=== PATIENT | male | born 1940 | race Caucasian/White ===

== ENCOUNTER → 2022-01-19 | Emergency (ER) | payer MEDICARE, OTHER ==
[~2022-01-19] VITALS: Ht 182.9 cm; Wt 70.8 kg
[~2022-01-19] MED LIST: IBUP-1955 PO
[2022-01-19 13:48] VITALS: BP 112/58
--- NOTE | 2022-01-19 13:48 | NUR ---
Patient discharged to home in stable condition. RX,Written and verbal after care instructions given. Patient verbalizes understanding of instruction.
== END | disposition home or self-care (01) ==
LOC: ER 12:03
DX: S62.617A Displaced fracture of proximal phalanx of left little finger, initial encounter for closed fracture (principal); Z86.69 Personal history of other diseases of the nervous system and sense organs; W10.9XXA Fall (on) (from) unspecified stairs and steps, initial encounter; Y93.89 Activity, other specified; Y92.89 Other specified places as the place of occurrence of the external cause; Y99.8 Other external cause status
CPT/HCPCS: 73140-TC

== ENCOUNTER 2022-01-25 13:00 | Outpatient (CLI) | payer MEDICARE, OTHER | END 2022-01-25 23:59 | LOC: WOU 13:00 | PROVIDERS: ATTEND Surgery | DX: S63.277D Dislocation of unspecified interphalangeal joint of left little finger, subsequent encounter (principal); X58.XXXD Exposure to other specified factors, subsequent encounter; M62.50 Muscle wasting and atrophy, not elsewhere classified, unspecified site; R26.2 Difficulty in walking, not elsewhere classified; G20 Parkinson's disease | CPT/HCPCS: G0463 ==

== ENCOUNTER 2022-02-20 11:14 | Emergency (ER) | payer MEDICARE, OTHER ==
[~2022-02-20] VITALS: Ht 188 cm; Wt 72.3 kg
--- NOTE | 2022-02-20 11:25 | NUR ---
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 PATIENT IS A/OX3. STATES THAT FALL HAPPENED WHEN HE TRIED TO STAND UP FROM HAIR BUT UNABLE TO RECALL HOW HE FELL OR WHAT PRECIPITATED THE FALL. DENIES DIZZINESS BUT VERBALIZES HEADACHE.
--- NOTE | 2022-02-20 11:30 | NUR ---
TO ER BED 10. VS TAKEN.
--- NOTE | 2022-02-20 11:35 | NUR ---
DR. DOUGLAS AT BEDSIDE W/ PATIENT.
--- NOTE | 2022-02-20 11:42 | NUR ---
IV LINE ESTABLISHED ON RAC #20, BLOOD DRAWN, COLLECTED, AND SENT TO LAB. LINE CONVERTED TO SALINE LOCK.
[2022-02-20 11:46] LABS: BASOPHILS % (AUTO) 0.6 % (0.0-2.0); EOSINOPHILS % (AUTO) 1.6 % (0.0-6.0); HEMATOCRIT 39 % (39-51); HEMOGLOBIN 13.1 g/dL (13.5-17.5); LYMPHOCYTES # (AUTO) 1.4 K/uL (0.8-4.8); LYMPHOCYTES % (AUTO) 26.2 % (20.0-44.0); MEAN CORPUSCULAR HGB CONC 34 g/dl (31.0-36.0); MEAN CORPUSCULAR VOLUME 93 fL (80-96); MONOCYTES # (AUTO) 0.4 K/uL (0.1-1.30); NEUTROPHILS # (AUTO) 3.6 K/uL (1.8-8.9); NEUTROPHILS % (AUTO) 64.6 % (43.0-81.0); PLATELET COUNT (AUTO) 151 K/uL (150-450); RED BLOOD CELL COUNT(AUTO) 4.16 MIL/uL (4.5-6.0); WHITE BLOOD COUNT (AUTO) 5.5 K/uL (4.3-11.0)
[2022-02-20 11:56] LABS: CALCIUM, SERUM 8.7 mg/dL (8.5-10.1); CARBON DIOXIDE 33 mmol/L (21-32); CHLORIDE 104 mmol/L (98-107); CREATININE 1.1 mg/dL (0.6-1.3); GLUCOSE 75 mg/dL (74-106); POTASSIUM 4.1 mmol/L (3.5-5.1); SODIUM SERUM 139 mmol/L (136-145); UREA NITROGEN, BLOOD 30 mg/dL (7-18)
[2022-02-20 12:01] LABS: ALANINE AMINOTRANSFERASE 8 U/L (12-78); ALBUMIN 4.1 g/dL (3.4-5.0); ALKALINE PHOSPHATASE 75 U/L (46-116); ASPARTATE AMINOTRANSFERASE 16 U/L (15-37); BILIRUBIN,DIRECT 0.2 mg/dL (0.0-0.2); BILIRUBIN,TOTAL 0.7 mg/dL (0.2-1.0); TOTAL PROTEIN, SERUM 7.4 g/dL (6.4-8.2)
--- NOTE | 2022-02-20 12:14 | NUR ---
PT TAKEN TO RADIOLOGY.
--- NOTE | 2022-02-20 12:17 | NUR ---
PT BACK FROM RADIOLOGY VIA [facility].
--- NOTE | 2022-02-20 13:12 | NUR ---
PHLEB TECH AT BEDSIDE FOR BLOOD DRAW FOR 2ND TROPONIN TEST PER MD'S ORDER.
[2022-02-20] MEDS ORDERED: ATOR20TA PO (13:30)
[2022-02-20] MEDS ORDERED: MIRT-90 PO (13:30)
[2022-02-20] MEDS ORDERED: LEVO100T9 PO (13:30)
[2022-02-20] MEDS ORDERED: CARB-134 PO (13:30)
[2022-02-20] MEDS ORDERED: MYRBETRIQ PO (13:30)
--- NOTE | 2022-02-20 13:48 | NUR ---
PER , SHE WILL DRIVE THE PATIENT BACK TO [facility] [place].
[2022-02-20 13:50] VITALS: BP 124/70
--- NOTE | 2022-02-20 13:56 | NUR ---
[facility] IV line removed, no bleeding noted. Written and verbal after care instructions given. Patient verbalizes understanding of instruction. Accompanied to the parking lot w/ staff via wheelchair and picked up patient via private car.
== END 2022-02-20 13:58 ==
LOC: ER 11:31
DX: M54.6 Pain in thoracic spine (principal); Z79.899 Other long term (current) drug therapy
CPT/HCPCS: 36415; 70450-TC; 72074-TC; 72125-TC; 80048-TC; 80076-TC; 84484-TC; 85025-TC; 85730-TC

== ENCOUNTER 2023-07-16 09:06 | Inpatient (IN) | payer MEDICARE, OTHER ==
[~2023-07-16] VITALS: Ht 182.9 cm; Wt 69.9 kg
[~2023-07-16 09:06] MED LIST changes: +ATOR20TA PO; +CARB-134 PO; +LEVO100T9 PO; +MIRT-90 PO; +MYRBETRIQ PO
[2023-07-16] MEDS ORDERED: IV NS 0.9% 1,000 ML BAG IV ONE (10:00)
[2023-07-16 10:40] LABS: BASOPHILS % (AUTO) 0.3 % (0.0-2.0); HEMATOCRIT 37 % (39-51); HEMOGLOBIN 12.5 g/dL (13.5-17.5); LYMPHOCYTES # (AUTO) 0.6 K/uL (0.8-4.8); LYMPHOCYTES % (AUTO) 8.2 % (20.0-44.0); MEAN CORPUSCULAR HEMOGLOBIN 30 PG (26.0-33.0); MEAN CORPUSCULAR HGB CONC 34 g/dl (31.0-36.0); MEAN CORPUSCULAR VOLUME 90 fL (80-96); MONOCYTES # (AUTO) 0.6 K/uL (0.1-1.30); MONOCYTES % (AUTO) 8.5 % (2.0-12.0); NEUTROPHILS # (AUTO) 5.7 K/uL (1.8-8.9); PLATELET COUNT (AUTO) 166 K/uL (150-450); RED BLOOD CELL COUNT(AUTO) 4.12 MIL/uL (4.5-6.0); RED CELL DISTRIBUTION WIDTH 16.2 % (11.5-15.0); WHITE BLOOD COUNT (AUTO) 6.9 K/uL (4.3-11.0)
[2023-07-16 10:44] LABS: APPEARANCE,URINE CLEAR (CLEAR); BILIRUBIN,URINE 1+ (NEGATIVE); BLOOD, URINE 2+ Ery/uL (NEGATIVE); COLOR,URINE DARK YELLOW (YELLOW); KETONES,URINE 1+ mg/dL (NEGATIVE); LEUKOCYTE ESTERASE ,URINE NEGATIVE (NEGATIVE); NITRITE, URINE NEGATIVE (NEGATIVE); PROTEIN,URINE 1+ mg/dl (NEGATIVE); UGLUCOSE NEGATIVE (NEGATIVE); UROBILINOGEN,URINE 0.2 EU/dL (0.2)
[2023-07-16 10:58] LABS: ALANINE AMINOTRANSFERASE 34 U/L (12-78); ALBUMIN 3.5 g/dL (3.4-5.0); ALKALINE PHOSPHATASE 78 U/L (46-116); ASPARTATE AMINOTRANSFERASE 58 U/L (15-37); BILIRUBIN,DIRECT 0.2 mg/dL (0.0-0.2); BILIRUBIN,TOTAL 0.9 mg/dL (0.2-1.0); CALCIUM, SERUM 8.4 mg/dL (8.5-10.1); CARBON DIOXIDE 25 mmol/L (21-32); CHLORIDE 98 mmol/L (98-107); CREATININE 1.1 mg/dL (0.6-1.3); GLUCOSE 110 mg/dL (74-106); POTASSIUM 3.9 mmol/L (3.5-5.1); SODIUM SERUM 133 mmol/L (136-145); TOTAL PROTEIN, SERUM 7.7 g/dL (6.4-8.2); UREA NITROGEN, BLOOD 36 mg/dL (7-18)
[2023-07-16] MEDS ORDERED: ACETAMINOPHEN 650 MG/SUPP.RECT RC ONE ×2 (11:00→11:10)
[2023-07-16] MEDS ORDERED: ACETAMINOPHEN 325 MG TABLET PO ONE (11:00)
[2023-07-16] MEDS ORDERED: CEFEPIME 1 GM in IV D5W 50 ML IV ONE (11:00)
[2023-07-16] MEDS ORDERED: VANCOMYCIN 1 GM in IV D5W 250 ML IV ONE (11:00)
[2023-07-16 11:16] LABS: RBC,URINE 21-50 /HPF (0-2); WBC,URINE 0-2 /HPF (0-3)
[2023-07-16 11:17] LABS: ADD URINE CULTURE NO; BACTERIA,URINE Few /HPF (None Seen); SQUAMOUS EPITHELIAL CELL,UR Few /HPF (None Seen)
[2023-07-16] MEDS ORDERED: MAGNESIUM HYDROXIDE 30 ML UDC PO PRN (14:00)
[2023-07-16] MEDS ORDERED: ACETAMINOPHEN 325 MG TABLET PO PRN (14:00)
[2023-07-16] MEDS ORDERED: MAG HYDROX/AL HYDROX/SIMETH 30 ML UDC PO PRN (14:00)
[2023-07-16] MEDS ORDERED: HYDROCODONE/APAP 5/325MG TABLET PO PRN (14:00)
[2023-07-16] MEDS ORDERED: TEMAZEPAM 15 MG CAPSULE PO PRN (14:00)
[2023-07-16] MEDS ORDERED: Z GUARD REMEDY 4 OZ OINT TP PRN (14:00)
[2023-07-16] MEDS ORDERED: HYDROCODONE/APAP 10/325MG TABLET PO PRN (14:00)
[2023-07-16] MEDS ORDERED: ONDANSETRON HCL/PF 4 MG/2 ML VIAL IVP PRN (14:00)
[2023-07-16] MEDS: STALEVO PO SCH (15:00)
[2023-07-16 16:00] VITALS: BP 136/75; TEMP 100; O2SAT 98
[2023-07-16] MEDS ORDERED: BENZONATATE 100 MG CAPSULE PO PRN (16:30)
[2023-07-16] MEDS ORDERED: ACETAMINOPHEN 650 MG/20.3 ML UDC NG PRN (16:30)
[2023-07-16] MEDS ORDERED: CARBIDOPA/LEV CR 50/200 MG 1 UDTAB.SA PO SCH (17:00)
[2023-07-16] MEDS ORDERED: SERTRALINE HCL 50 MG TABLET PO SCH (17:00)
[2023-07-16] MEDS ORDERED: MEMANTINE HCL 5 MG TABLET PO SCH (17:00)
[2023-07-16] MEDS ORDERED: INSULIN REGULAR, HUMAN 100 UNIT/ML 3 ML VIAL SQ PRN (17:00)
[2023-07-16] MEDS ORDERED: DEXTROSE 50%-WATER 50 ML DISP.SYRIN IV PRN (17:00)
[2023-07-16] MEDS ORDERED: MELA5TAB PO (17:17)
[2023-07-16] MEDS ORDERED: MEMA10TA PO (17:17)
[2023-07-16] MEDS ORDERED: SERT100T PO (17:17)
[2023-07-16] MEDS ORDERED: BLOOD SUGAR DIAGNOSTIC 1 EACH STRIP IN SCH (17:30)
[2023-07-16] MEDS ORDERED: MIRTAZAPINE 15 MG TABLET PO SCH ×2 (18:00→22:00)
[2023-07-16] MEDS: MIRTAZAPINE 15 MG TABLET PO SCH (18:16)
[2023-07-16] MEDS: IV NS 0.9% 1,000 ML IV PRN (18:16)
[2023-07-16 20:00] VITALS: BP 90/60; TEMP 99; O2SAT 98
[2023-07-16] MEDS ORDERED: CEFEPIME 1 GM in IV D5W 50 ML IV SCH (21:00)
[2023-07-16] MEDS: CEFEPIME 2 GM in IV D5W 100 ML IV SCH (21:02)
[2023-07-16] MEDS: ATORVASTATIN 10 MG TABLET PO SCH (21:12)
[2023-07-16] MEDS ORDERED: ATORVASTATIN 10 MG TABLET PO SCH (22:00)
[2023-07-17] VITALS: BP 102/63; TEMP 97.9; O2SAT 95
[2023-07-17] MEDS: IV NS 0.9% 1,000 ML IV PRN ×2 (03:58→18:15)
[2023-07-17 04:00] VITALS: BP 100/70; TEMP 98.5; O2SAT 98
[2023-07-17 07:18] LABS: BASOPHILS % (AUTO) 0.3 % (0.0-2.0); EOSINOPHILS % (AUTO) 0.5 % (0.0-6.0); HEMATOCRIT 38 % (39-51); HEMOGLOBIN 12.5 g/dL (13.5-17.5); LYMPHOCYTES # (AUTO) 0.9 K/uL (0.8-4.8); LYMPHOCYTES % (AUTO) 13.3 % (20.0-44.0); MEAN CORPUSCULAR HEMOGLOBIN 30 PG (26.0-33.0); MEAN CORPUSCULAR HGB CONC 33 g/dl (31.0-36.0); MEAN CORPUSCULAR VOLUME 91 fL (80-96); MONOCYTES # (AUTO) 0.6 K/uL (0.1-1.30); MONOCYTES % (AUTO) 9.6 % (2.0-12.0); NEUTROPHILS % (AUTO) 76.3 % (43.0-81.0); PLATELET COUNT (AUTO) 145 K/uL (150-450); RED BLOOD CELL COUNT(AUTO) 4.14 MIL/uL (4.5-6.0); RED CELL DISTRIBUTION WIDTH 16.1 % (11.5-15.0); WHITE BLOOD COUNT (AUTO) 6.5 K/uL (4.3-11.0)
[2023-07-17 07:58] LABS: CALCIUM, SERUM 8.2 mg/dL (8.5-10.1); CREATININE 0.9 mg/dL (0.6-1.3); PHOSPHORUS 3.1 mg/dL (2.5-4.9); POTASSIUM 3.6 mmol/L (3.5-5.1)
[2023-07-17 08:00] VITALS: BP 141/68; TEMP 98.4; O2SAT 98
[2023-07-17 08:18] LABS: THYROID STIMULATING HORMONE 4.538 uIU/mL (0.358-3.74)
[2023-07-17] MEDS: MEMANTINE HCL 5 MG TABLET PO SCH ×2 (08:28→17:07)
[2023-07-17] MEDS: CEFEPIME 2 GM in IV D5W 100 ML IV SCH ×2 (08:28→21:05)
[2023-07-17] MEDS: PANTOPRAZOLE 40 MG TABLET.DR PO SCH (08:29)
[2023-07-17] MEDS: LEVOTHYROXINE SODIUM 100 MCG TABLET PO SCH (08:29)
[2023-07-17] MEDS: SERTRALINE HCL 50 MG TABLET PO SCH (08:29)
[2023-07-17] MEDS ORDERED: LEVOTHYROXINE SODIUM 100 MCG TABLET PO SCH (09:00)
[2023-07-17] MEDS ORDERED: CYAN-51 PO (09:20)
[2023-07-17] MEDS ORDERED: TROS20TA3 PO (09:20)
[2023-07-17] MEDS: STALEVO PO SCH ×5 (09:45→17:03)
[2023-07-17 12:00] VITALS: BP 100/56; TEMP 98.4; O2SAT 98
[2023-07-17 16:18] VITALS: BP 100/64; TEMP 97.9; O2SAT 98
[2023-07-17] MEDS: MIRTAZAPINE 15 MG TABLET PO SCH (17:07)
[2023-07-17 20:00] VITALS: BP 105/61; TEMP 98.6; O2SAT 93
[2023-07-17] MEDS: ATORVASTATIN 10 MG TABLET PO SCH (21:11)
[2023-07-18] VITALS: BP 116/66; TEMP 97.7; O2SAT 97
[2023-07-18 04:00] VITALS: BP 120/59; TEMP 98.6; O2SAT 96
[2023-07-18] MEDS: IV NS 0.9% 1,000 ML IV PRN (06:36)
[2023-07-18 08:00] VITALS: BP 156/66; TEMP 97.9; O2SAT 97
[2023-07-18] MEDS: LEVOTHYROXINE SODIUM 100 MCG TABLET PO SCH (08:19)
[2023-07-18] MEDS: PANTOPRAZOLE 40 MG TABLET.DR PO SCH (08:19)
[2023-07-18] MEDS: STALEVO PO SCH ×4 (08:20→15:21)
[2023-07-18] MEDS: CEFEPIME 2 GM in IV D5W 100 ML IV SCH (08:20)
[2023-07-18] MEDS: MEMANTINE HCL 5 MG TABLET PO SCH (08:20)
[2023-07-18] MEDS: SERTRALINE HCL 50 MG TABLET PO SCH (08:20)
[2023-07-18] MEDS ORDERED: ENSURE ENLIVE 237 ML LIQUID (VANILLA) PO SCH (09:00)
[2023-07-18] MEDS ORDERED: AMOX-430 PO (12:43)
[2023-07-18] MEDS ORDERED: TROSPIUM XX SCH (13:30)
[2023-07-18] MEDS ORDERED: TAMSULOSIN 0.4 MG CAP.SR.24H PO SCH (22:00)
[2023-07-19] MEDS ORDERED: CYANOCOBALAMIN 500 MCG TABLET PO SCH (09:00)
== END 2023-07-18 16:40 | DRG 178 ==
LOC: ER 09:06 → TELE1 13:39 → MEDSG1 14:15 → TELE1 18:26
PROVIDERS: ADMIT Nurse Practitioner Acute Care; ATTEND Nurse Practitioner Acute Care
DX: J15.69 Pneumonia due to other Gram-negative bacteria (principal); E87.1 Hypo-osmolality and hyponatremia; J15.9 Unspecified bacterial pneumonia; G20.A1 Parkinson's disease without dyskinesia, without mention of fluctuations; N32.81 Overactive bladder; W06.XXXA Fall from bed, initial encounter; Y92.129 Unspecified place in nursing home as the place of occurrence of the external cause; Z79.890 Hormone replacement therapy; Z79.899 Other long term (current) drug therapy; R79.89 Other specified abnormal findings of blood chemistry; E78.5 Hyperlipidemia, unspecified; E03.9 Hypothyroidism, unspecified; F32.A Depression, unspecified; Y95 Nosocomial condition; F12.90 Cannabis use, unspecified, uncomplicated; Z20.822 Contact with and (suspected) exposure to COVID-19; F17.200 Nicotine dependence, unspecified, uncomplicated
CPT/HCPCS: 36415; 70450-TC; 71045-TC; 72125-TC; 72170-TC; 73030-TC; 80048-TC; 80061-TC; 80076-TC; 81001; 83605-TC; 83735-TC; 84100-TC; 84443-TC; 84484-TC; 85025-TC; 87040-TC; 87081-TC; 87086-TC; 97112-TC; 97116-TC; 97530-TC; A4223; A4349; A6253; A6403; G0378; J0692; J1815; J3370; J7030; J7050; J7060

== ENCOUNTER 2024-05-07 20:48 | Emergency (ER) | payer MEDICARE, OTHER ==
[~2024-05-07] VITALS: Ht 177.8 cm; Wt 79.4 kg
[~2024-05-07 20:48] MED LIST changes: +AMOX-430 PO; +CYAN-51 PO; -IBUP-1955 PO; +MELA5TAB PO; +MEMA10TA PO; -MYRBETRIQ PO; +SERT100T PO; +TROS20TA3 PO
--- NOTE | 2024-05-07 21:03 | NUR ---
BIBRA 881 CO BLOOD IN CATHETER X 1 HOUR
--- NOTE | 2024-05-07 21:14 | NUR ---
LAB AT BEDSIDE
--- NOTE | 2024-05-07 21:24 | NUR ---
URINE COLLECTED AND SENT TO LAB
[2024-05-07 21:25] LABS: BASOPHILS # (AUTO) 0.1 K/uL (0.0-0.2); EOSINOPHILS # (AUTO) 0.4 K/uL (0.0-0.7); EOSINOPHILS % (AUTO) 3.4 % (0.0-6.0); HEMATOCRIT 33 % (39-51); HEMOGLOBIN 10.8 g/dL (13.5-17.5); LYMPHOCYTES # (AUTO) 1.9 K/uL (0.8-4.8); LYMPHOCYTES % (AUTO) 16.5 % (20.0-44.0); MEAN CORPUSCULAR HEMOGLOBIN 29 PG (26.0-33.0); MEAN CORPUSCULAR HGB CONC 32 g/dl (31.0-36.0); MEAN CORPUSCULAR VOLUME 90 fL (80-96); MONOCYTES # (AUTO) 0.8 K/uL (0.1-1.30); MONOCYTES % (AUTO) 7.5 % (2.0-12.0); NEUTROPHILS # (AUTO) 8.1 K/uL (1.8-8.9); NEUTROPHILS % (AUTO) 71.6 % (43.0-81.0); PLATELET COUNT (AUTO) 255 K/uL (150-450); RED BLOOD CELL COUNT(AUTO) 3.72 MIL/uL (4.5-6.0); RED CELL DISTRIBUTION WIDTH 17.2 % (11.5-15.0); WHITE BLOOD COUNT (AUTO) 11.3 K/uL (4.3-11.0)
[2024-05-07 21:34] LABS: APPEARANCE,URINE BLOODY (CLEAR); COLOR,URINE RED (YELLOW)
[2024-05-07 21:35] LABS: RBC,URINE TOO NUMEROUS TO COUN /HPF (0-2)
[2024-05-07 21:37] LABS: BACTERIA,URINE 2+ /HPF (None Seen); SQUAMOUS EPITHELIAL CELL,UR 0-2 /HPF (None Seen); WBC,URINE 21-50 /HPF (0-3)
[2024-05-07 21:39] LABS: CARBON DIOXIDE 22 mmol/L (21-32); CHLORIDE 103 mmol/L (98-107); GLUCOSE 83 mg/dL (74-106); POTASSIUM 4.5 mmol/L (3.5-5.1); SODIUM SERUM 137 mmol/L (136-145); UREA NITROGEN, BLOOD 35 mg/dL (7-18)
[2024-05-07 21:41] LABS: INR 1.08 (0.91-1.10); PARTIAL THROMBOPLASTIN TIME 29.9 SEC (24.3-34.3); PROTHROMBIN TIME 11.4 SECS (9.2-11.1)
[2024-05-07 21:44] LABS: ALANINE AMINOTRANSFERASE 7 U/L (12-78); ALKALINE PHOSPHATASE 95 U/L (46-116); ASPARTATE AMINOTRANSFERASE 9 U/L (15-37); BILIRUBIN,DIRECT 0.1 mg/dL (0.0-0.2); BILIRUBIN,TOTAL 0.3 mg/dL (0.2-1.0); LIPASE 18 U/L (16-77); TOTAL PROTEIN, SERUM 7.7 g/dL (6.4-8.2)
--- NOTE | 2024-05-07 22:00 | NUR ---
DR. FRIAS AT BEDSIDE
[2024-05-07] MEDS ORDERED: CEFTRIAXONE 1GM BAG (ER ONLY) 50 ML IV ONE (22:04)
--- NOTE | 2024-05-07 22:05 | NUR ---
20G IV STARTED ON R FOREARM. MEDICATED ORDERED
[2024-05-07] MEDS: IV NS 0.9% 1,000 ML BAG IV ONE (22:22)
[2024-05-07] MEDS: CEFTRIAXONE 1GM BAG (ER ONLY) 1 GM/50 ML PIGGYBACK IV ONE (22:22)
[2024-05-07] MEDS ORDERED: CEPH500T PO (23:03)
--- NOTE | 2024-05-07 23:11 | NUR ---
[facility] contacted, [phone]
--- NOTE | 2024-05-08 00:04 | NUR ---
PT'S SON IN LAW PICKED UP RESIDENT TO GO BACK TO FACILITY
[2024-05-08 00:05] VITALS: BP 127/86; TEMP 98.7; O2SAT 98
== END 2024-05-08 00:05 ==
LOC: ER 20:50
DX: N39.0 Urinary tract infection, site not specified (principal)
CPT/HCPCS: 99284; 96365; 85025; 80048; 87086; 83690; 80076; 81001; 36415; 85730; J7030; J0696